=== PATIENT | female | born 1940 | race Caucasian/White ===

== ENCOUNTER → 2024-01-04 06:41 | Day surgery (SDC) | payer MEDICARE, OTHER, SELFPAY | LOC: GI 06:41 | PROVIDERS: ATTENDING PHYSICIAN Internal Medicine | DX: R10.31 Right lower quadrant pain (principal); Z80.0 Family history of malignant neoplasm of digestive organs; K64.9 Unspecified hemorrhoids; Q43.8 Other specified congenital malformations of intestine; K62.1 Rectal polyp | CPT/HCPCS: 45380; 88305 ==

== ENCOUNTER → 2024-04-09 09:04 | Outpatient (REF) | payer MEDICARE, OTHER, SELFPAY | LOC: RAD 09:04 | PROVIDERS: ATTENDING PHYSICIAN Family Medicine | DX: R05.1 Acute cough (principal) | CPT/HCPCS: 71046 ==

== ENCOUNTER → 2024-05-04 08:22 | Outpatient (REF) | payer MEDICARE, OTHER, SELFPAY | LOC: HWRAD 08:22 | PROVIDERS: ATTENDING PHYSICIAN Internal Medicine; FAMILY PHYSICIAN Family Medicine | DX: R10.9 Unspecified abdominal pain (principal) | CPT/HCPCS: 74177; Q9967 ==

== ENCOUNTER 2025-04-26 13:41 | Emergency (ER) | payer OTHER, SELFPAY ==
[2025-04-26 13:57] VITALS: BP 122/78
[2025-04-26 14:13] LABS: % Basophils 0.3 % (0-2); % Eosinophils 2.3 % (0-6); % Immature Granulocytes 0.3 % (0-0.5); % Lymphocytes 31.4 % (20.5-51.1); % Monocytes 6.9 % (1.7-9.3); % Neutrophils 58.8 % (42.2-75.2); Absolute Eosinophils 0.1 10^3/uL (0-0.7); Absolute Lymphocytes 1.8 10^3/uL (1.2-3.4); Absolute Monocytes 0.4 10^3/uL (0.1-0.6); Absolute Neutrophils 3.4 10^3/uL (1.4-6.5); Hematocrit 41.4 % (37.0-47.0); Hemoglobin 13.4 g/dL (12.0-16.0); Mean Corp Hgb Conc. 32.4 g/dL (33.0-37.0); Mean Corpuscular Hgb 28.4 pg (27.0-31.0); Mean Corpuscular Volume 87.7 fL (81.0-99.0); Mean Platelet Volume 10.2 fL (7.4-10.4); Nucleated Red Blood Cells % 0 %; Platelet Count 179 10^3/uL (130-400); Red Blood Cell Count 4.72 10^6/uL (4.20-5.40); Red Cell Dist. Width 13.2 % (11.5-14.5); White Blood Cell Count 5.8 10^3/uL (4.8-10.8)
[2025-04-26 14:27] LABS: ALT (SGPT) 18 U/L (0-35); AST (SGOT) 21 U/L (14-36); Albumin 4.4 g/dl (3.5-5.0); Alkaline Phosphatase 56 U/L (38-126); Blood Urea Nitrogen 13 mg/dl (7-17); Calcium 10.5 mg/dl (8.4-10.2); Carbon Dioxide 30 mmol/L (22-30); Chloride 107 mmol/L (98-107); Glucose 114 mg/dl (70-99); Lipase 71 U/L (23-300); Potassium 3.8 mmol/L (3.5-5.1); Sodium 143 mmol/L (135-145); Total Bilirubin 0.5 mg/dl (0.2-1.3); Total Protein 6.9 g/dl (6.3-8.2); eGFR > 60.00
[2025-04-26 15:03] LABS: Urine Albumin Negative (Neg - Trace); Urine Bilirubin Negative (Negative); Urine Character Clear (Clear); Urine Color Yellow; Urine Glucose Negative (Negative); Urine Ketone Negative (Negative); Urine Leukocyte 1+ (Negative); Urine Nitrite Negative (Negative); Urine Occult Blood Negative (Negative); Urine Urobilinogen Negative (Neg - 1+)
[2025-04-26 15:06] VITALS: BP 124/65
[2025-04-26 15:17] LABS: Urine Urothelial Cell 0-2 /LPF (FEW)
[2025-04-26 15:18] LABS: Urine Red Blood Cell 0-2 /HPF (0-2)
[2025-04-26 15:19] LABS: Urine Bacteria Few (Negative)
--- NOTE | 2025-04-26 19:19 | ED.GENMED ---
History of Present Illness
General
Chief Complaint: Flank Pain
Source: patient
Exam Limitations: none
Time Seen by Provider: 04/26/25 18:50
Nursing documentation reviewed up to this point in time: agreed with
History of Present Illness
History of Present Illness:
Patient presents to ED secondary to intermittent right mid back/flank pain radiating to abdomen over the past 1 week, which has worsened over the past 24 hours. Denies nausea or vomiting. Denies trauma. Denies difficulty urination. Denies fever
or chills. Patient has had normal meals today without difficulty. Denies change in bowel habits. Denies previous history of similar symptoms. There is family history of kidney stones.
Review of Systems
Review of Systems
Allergies reviewed?: Yes
All Other Systems: ROS reviewed and negative except as documented in HPI and ROS
Constitutional: Reports no symptoms
Respiratory: Reports no symptoms
Cardiac: Reports no symptoms
ABD/GI: Reports no symptoms; Denies vomiting or diarrhea
: Reports flank pain
Musculoskeletal: Reports back pain
Skin: Reports no symptoms
Neurological: Reports no symptoms
Phy Exam
Physical Exam
Physical Exam:
Physical Exam
General: no apparent distress, not acutely ill. afebrile
Head: nc/at. eomi
Neck: supple. normal range of motion.
Abdomen: normal bowel sounds. not tender.
Back: no cva tenderness
Neuro: alert and oriented x 3. no focal neurological deficits
Skin: no rash
Psychiatric: well kept. interactive and cooperative
Extremities: no edema. no calf tenderness.
Course
Orders/Labs/Results
Orders:
Orders
04/26/25 14:04
Complete Blood Count/With Diff Urgent
04/26/25 14:05
Comprehensive Metabolic Panel Urgent
Lipase Urgent
04/26/25 14:49
Urinalysis Reflex To Culture Urgent
Date Specimen was Collected: 04/26/25
Time Specimen was Collected: 14:01
Urine Microscopic Reflex Cult Urgent
Urine Culture Urgent
HERMINIA Source: U
Specimen Description:
Date Specimen was Collected: 04/26/25
Time Specimen was Collected: 14:01
04/26/25 19:18
CT Abd/pel Without Iv Or Oral Urgent
Comment:
Reason For Exam: right midback/flank pain radiating to abdomen
Ibuprofen [Motrin] 400 mg PO NOW STA
Abnormal Lab Results
04/26/25 04/26/25 04/26/25
14:04 14:05 14:49
MCHC 32.4 L g/dL
(33.0-37.0)
Glucose 114 H mg/dl
(70-99)
Calcium 10.5 H mg/dl
(8.4-10.2)
Leukocyte Esterase Rfl 1+ A
(Negative)
Urine Bacteria (Reflex) Few A
(Negative)
04/26/25 14:04
04/26/25 14:05
Vital Signs
Initial and Last Documented VS:
Initial Vital Signs
Temp Pulse Resp BP Pulse Ox
97.8 F 69 16 122/78 97
04/26/25 13:57 04/26/25 13:57 04/26/25 13:57 04/26/25 13:57 04/26/25 13:57
Last Documented Vital Signs
Temp Pulse Resp BP Pulse Ox
97.5 F 95 20 156/63 98
04/26/25 20:38 04/26/25 21:19 04/26/25 21:19 04/26/25 20:38 04/26/25 21:19
MDM/Problems Addressed
MDM/Problems Addressed:
Patient with an unremarkable In ED, including blood work and CT abdomen pelvis. CT report reviewed with patient and family. Repeat abdominal exam: Soft and nontender. Patient otherwise remains afebrile, helically stable, and nontoxic-appearing.
Patient will be discharged in stable condition, with recommendation to increase bowel regimen, i.e. MiraLAX, along with PCP/GI follow-up as an outpatient, or return to ED with worsening symptoms.
*Pulse Oximetry
SaO2: 99
Oxygen Mode of Delivery: Room air
Patient hypoxic: no
*Critical Care Note
Total Time (30-74mins, 75-104mins- exclusive of procedures): Not Applicable
ED Attending Note
-
Portions of this chart may have been created with voice recognition software.� Occasional wrong word or��sound alike� substitutions may have occurred due to the inherent limitations of voice recognition software.
Discharge Plan
Departure
Patient Disposition: Home (Routine Discharge)
Date of Disposition: 04/26/25
Time of Disposition: 21:12
Patient with high blood pressure during this ER visit?: Yes
Discharge Problem:
Back pain
Instructions: Flank Pain (DC)
Prescriptions:
No Action
latanoprost [Xalatan] 2.5 ML drops
1 drp OP HS
Patient Comments:
both eyes
sennosides 8.6 MG tablet
2 tab PO DAILY
simvastatin 10 MG tablet
10 mg PO HS
pantoprazole 40 MG tablet,delayed release (DR/EC)
40 mg PO DAILY
hydrochlorothiazide 12.5 MG capsule
1 tab PO DAILY
docusate sodium 100 MG capsule
100 mg PO BID
budesonide 0.25 MG/2 ML suspension for nebulization
0.25 mg IH DAILYPRN PRN (Reason: wheezing/coughing)
montelukast 10 MG tablet
1 tab PO QPM
naphazoline-pheniramine [Visine-A] 15 ML drops
1 drp OP DAILY
Patient Comments:
0.10617-4.315% NAPHCON-A
cholecalciferol (vitamin D3) 1,000 UNIT capsule
1,000 unit PO DAILY
calcium carbonate-vitamin D3 [Calcium 600 + D(3)] 1 EACH tablet
1 ea PO DAILY
Patient Comments:
stopped 2 weeks ago
cyanocobalamin (vitamin B-12) 2,000 MCG tablet
1,000 mcg PO DAILY
polyethylene glycol 3350 17 GRAMS powder in packet
17 grams PO DAILYPRN PRN (Reason: constipation) Qty: 0 0RF
ascorbic acid (vitamin C) [Vitamin C] 500 MG tablet
1,000 mg PO DAILY Qty: 0 0RF
docusate sodium 100 MG capsule
100 mg PO BID Qty: 0 0RF
hydrocodone-acetaminophen 1 TABLET tablet
1 tab PO Q4HPRN PRN (Reason: moderate to severe pain) Qty: 90 0RF
Referrals:
Justin Ramirez Jr., DO [Family Provider, Internal Medicine]
Julia Maloen DO [Active, Gastroenterology]
Activity Restrictions/Additional Instructions:
As discussed, please follow-up with your primary care physician and/or GI physician for reevaluation. Please consider return to ED with worsening symptoms, i.e. fever/worsening pain/vomiting.
Interventions
Interventions:
*Risk Screen - Suicide Last Done: 04/26/25 19:21
*General Assessment Last Done: 04/26/25 19:21
*Neglect/Abuse Screening Last Done: 04/26/25 19:21
*ED- Fall Risk Assessment Last Done: 04/26/25 19:21
*ED COVID-19 Vaccine History Last Done: 04/26/25 19:21
*Nursing Disposition Last Done: 04/26/25 21:19
PO-Gyqnty-Fqfrwcyvyz Assessment Last Done: 04/26/25 20:39
ED-Female Genitourinary Assessment Last Done: 04/26/25 20:39
Discharge Date and Time
Discharge Date/Time: 04/26/25 21:20
Print Language: [place]
[2025-04-26 19:21] VITALS: BMI 34.8
[2025-04-26] MEDS: MOTRIN 400 MG PO (19:23)
[2025-04-26 20:38] VITALS: BP 156/63
== END 2025-04-26 21:20 | disposition home or self-care (01) ==
LOC: EMR 13:41
PROVIDERS: Emergency Medicine; EMERGENCY PHYSICIAN Emergency Medicine; FAMILY PHYSICIAN Family Medicine
DX: M54.9 Dorsalgia, unspecified (principal); R10.9 Unspecified abdominal pain
CPT/HCPCS: 99284; 74176; 80053; 81003; 81015; 83690; 85025; 87086

== ENCOUNTER → 2025-07-21 10:13 | Outpatient (REF) | payer OTHER, SELFPAY | LOC: HWRCS 10:13 | PROVIDERS: ATTENDING PHYSICIAN Internal Medicine Cardiovascular Disease | DX: Z76.89 Persons encountering health services in other specified circumstances (principal); R55 Syncope and collapse; R42 Dizziness and giddiness | CPT/HCPCS: 93306 ==

== ENCOUNTER → 2025-08-28 08:19 | Outpatient (REF) | payer OTHER, SELFPAY | LOC: RAD 08:19 | PROVIDERS: ATTENDING PHYSICIAN Family Medicine | DX: I65.23 Occlusion and stenosis of bilateral carotid arteries (principal); E04.1 Nontoxic single thyroid nodule | CPT/HCPCS: 76536 ==